=== PATIENT | female | born 1970 | race African-American/Black ===

== ENCOUNTER 2020-08-29 18:11 | Emergency (ER) | payer MEDICAID, OTHER ==
[~2020-08-29] VITALS: Ht 170.2 cm; Wt 68.0 kg
[2020-08-29 19:03] VITALS: BP 177/102
[2020-08-29] MEDS ORDERED: CLINDAMYCIN 900MG IV 50 ML IV ONE (20:00)
[2020-08-29] MEDS ORDERED: KETOROLAC TROMETH 30 MG/ML 1ML VIAL IV ONE (20:00)
[2020-08-29] MEDS ORDERED: SODIUM CHLORIDE 0.9% 1,000 ML IV ONE (20:00)
[2020-08-29 20:57] LABS: Basophils # (auto) 0 10 ^3/uL (0-0.2); Basophils % (auto) 0.3 % (0.0-2.0); Eosinophils # (auto) 0 10 ^3/uL (0-0.8); Eosinophils % (auto) 0.4 % (0.0-7.0); Hemoglobin 10.8 g/dL (12.2-16.2); Lymphocytes # (auto) 0.9 10 ^3/uL (0.4-5.4); Lymphocytes % (auto) 9.6 % (10.0-50.0); Mean Corpuscular Hemoglobin 29.5 pg (28.0-32.0); Mean Corpuscular Hgb Conc. 33.6 g/dL (32.0-36.0); Mean Corpuscular Volume 87.6 fL (80.0-100.0); Monocytes # (auto) 0.6 10 ^3/uL (0-1.3); Monocytes % (auto) 5.8 % (0.0-12.0); Neutrophils # (auto) 8.2 10 ^3/uL (1.6-8.6); Neutrophils % (auto) 83.9 % (37.0-80.0); Platelet Count (auto) 265 10^3/uL (140-450); Red Blood Cells 3.65 10^6/uL (4.0-5.20); Red Cell Distribution Width 17.1 % (11.8-14.3); White Blood Cell 9.8 10^3/uL (4.4-10.8)
[2020-08-29 21:14] LABS: Albumin 3.4 g/dL (3.4-5.0); Calcium 8.5 mg/dL (8.5-10.1)
[2020-08-29 21:19] LABS: BUN/Creatinine Ratio 13.3; Bilirubin, Total 0.5 mg/dL (0.2-1.0); Total Protein 7.5 g/dL (6.4-8.2)
[2020-08-29 21:22] LABS: Potassium 2.9 mmol/L (3.5-5.1)
[2020-08-29] MEDS ORDERED: POTASSIUM EFFERVESENT TAB 25 MEQ PO ONE (21:45)
== END 2020-08-30 00:18 | disposition home or self-care (01) ==
LOC: EDSEX 18:11 → ER 18:11
DX: L03.113 Cellulitis of right upper limb (principal)
CPT/HCPCS: 36415; 80053; 85025; 96365; 96375; 99284; J1885; J3490; J7030

== ENCOUNTER 2022-10-14 18:30 | Emergency (ER) | payer MEDICAID ==
[~2022-10-14] VITALS: Ht 170.2 cm; Wt 65.9 kg
[2022-10-14 19:30] VITALS: BP 138/79
[2022-10-14 20:24] LABS: Urine Bacteria NONE SEEN /hpf (None Seen); Urine Blood 2+ /uL (Negative); Urine WBC 13 /hpf (0 - 5)
== END 2022-10-14 22:08 | disposition left against medical advice (07) ==
LOC: ER 18:30
DX: R06.02 Shortness of breath (principal); Z53.21 Procedure and treatment not carried out due to patient leaving prior to being seen by health care provider
CPT/HCPCS: 81001; 93005

== ENCOUNTER 2024-01-28 08:51 | Emergency (ER) | payer MEDICAID ==
[~2024-01-28] VITALS: Ht 170.2 cm; Wt 68.2 kg
[2024-01-28] MEDS ORDERED: BACDST PO (10:39)
[2024-01-28] MEDS ORDERED: TRIA0.1O TOP (10:39)
[2024-01-28] MEDS ORDERED: CLIN1CAP70 PO (10:39)
[2024-01-28 10:50] VITALS: BP 155/102; PULSE 110; RESP 18; TEMP 98.6; O2SAT 97
== END 2024-01-28 10:57 | disposition home or self-care (01) ==
LOC: ER 08:57
DX: S81.802A Unspecified open wound, left lower leg, initial encounter (principal); L30.1 Dyshidrosis [pompholyx]; Z88.6 Allergy status to analgesic agent; X58.XXXA Exposure to other specified factors, initial encounter; Y93.89 Activity, other specified; Y92.89 Other specified places as the place of occurrence of the external cause; Y99.8 Other external cause status

== ENCOUNTER 2024-02-25 08:20 | Emergency (ER) | payer MEDICAID ==
[~2024-02-25] VITALS: Ht 170.2 cm; Wt 69.4 kg
[~2024-02-25 08:20] MED LIST: BACDST PO; CLIN1CAP70 PO; TRIA0.1O TOP
[2024-02-25 08:59] VITALS: BP 150/98; PULSE 91; RESP 16; TEMP 97.6; O2SAT 98
[2024-02-25] MEDS ORDERED: METH4PAK PO (09:01)
[2024-02-25] MEDS ORDERED: CEPH500C PO (09:01)
[2024-02-25] MEDS ORDERED: TRIA0.02 TOP (09:01)
== END 2024-02-25 09:08 | disposition home or self-care (01) ==
LOC: ER 08:20
DX: L30.1 Dyshidrosis [pompholyx] (principal); Z88.6 Allergy status to analgesic agent

== ENCOUNTER 2024-04-14 16:10 | Emergency (ER) | payer MEDICAID ==
[~2024-04-14] VITALS: Ht 170.2 cm; Wt 68.5 kg
[~2024-04-14 16:10] MED LIST changes: +CEPH500C PO; +METH4PAK PO; +TRIA0.02 TOP
[2024-04-14 17:46] LABS: Basophils # (auto) 0 10 ^3/uL (0-0.2); Eosinophils # (auto) 0.1 10 ^3/uL (0-0.8); Eosinophils % (auto) 2.2 % (0.0-7.0); Hematocrit 34.7 % (36.0-46.0); Lymphocytes # (auto) 1.4 10 ^3/uL (0.4-5.4); Lymphocytes % (auto) 33.5 % (10.0-50.0); Mean Corpuscular Hgb Conc. 31.7 g/dL (32.0-36.0); Mean Corpuscular Volume 88.3 fL (80.0-100.0); Monocytes # (auto) 0.3 10 ^3/uL (0-1.3); Monocytes % (auto) 7.9 % (0.0-12.0); Neutrophils # (auto) 2.4 10 ^3/uL (1.6-8.6); Neutrophils % (auto) 55.4 % (37.0-80.0); Nucleated Red Blood Cells % 0.2 %; Platelet Count (auto) 225 10^3/uL (140-450); Red Blood Cells 3.93 10^6/uL (4.0-5.20); Red Cell Distribution Width 18.3 % (11.8-14.3); White Blood Cell 4.3 10^3/uL (4.4-10.8)
[2024-04-14 18:04] LABS: Chloride 113 mmol/L (98-107); Potassium 3.7 mmol/L (3.5-5.1); Sodium 141 mmol/L (136-145)
[2024-04-14 18:05] LABS: Anion Gap 8 (5-15); Carbon Dioxide 20 mmol/L (20-31)
[2024-04-14 18:06] LABS: Calcium 9.3 mg/dL (8.7-10.4)
[2024-04-14 18:10] LABS: BUN/Creatinine Ratio 11.7 (10.0-20.0); Blood Urea Nitrogen 9 mg/dL (9-23); Glucose 79 mg/dL (74-106)
[2024-04-14 18:20] VITALS: BP 121/94; PULSE 93; RESP 17; TEMP 98.6; O2SAT 100
[2024-04-14] MEDS: KETOROLAC TROMETH 60MG/2ML VIAL IM ONE (18:22)
[2024-04-14 18:39] LABS: Vaginal Bacteria Moderate; Vaginal Clue Cells Many; Vaginal Epithelial Cells Few
[2024-04-14] MEDS ORDERED: CLIN2CRE7 VG (20:03)
[2024-04-14] MEDS ORDERED: MET500T PO (20:03)
[2024-04-14] MEDS ORDERED: IBUP-1455 PO (20:03)
[2024-04-14 21:26] LABS: Urine Bacteria None Seen /hpf (None Seen)
[2024-04-14 21:37] LABS: Urine Blood TRACE /uL (Negative); Urine Clarity Clear (Clear); Urine Color Yellow (Yellow); Urine Mucus FEW (None Seen); Urine Protein, UAD TRACE (Negative); Urine Specific Gravity 1.027 (1.001-1.035); Urine Urobilinogen 2 mg/dL (Negative); Urine WBC 1 /hpf (0 - 5)
== END 2024-04-14 21:26 | disposition home or self-care (01) ==
LOC: ER 16:10
DX: S80.02XA Contusion of left knee, initial encounter (principal); B96.89 Other specified bacterial agents as the cause of diseases classified elsewhere; N76.0 Acute vaginitis; F41.9 Anxiety disorder, unspecified; Z88.5 Allergy status to narcotic agent; Z79.899 Other long term (current) drug therapy; Y04.2XXA Assault by strike against or bumped into by another person, initial encounter; Y93.89 Activity, other specified; Y92.89 Other specified places as the place of occurrence of the external cause; Y99.8 Other external cause status
CPT/HCPCS: 36415; 73562; 80048; 81001; 85025; 87210; 96372; 99284; J1885

== ENCOUNTER 2024-06-29 07:14 | Inpatient (IN) | payer MEDICAID ==
[~2024-06-29] VITALS: Ht 170.2 cm; Wt 73.6 kg
[~2024-06-29 07:14] MED LIST changes: +CLIN2CRE7 VG; +IBUP-1455 PO; +MET500T PO
[2024-06-29] MEDS: ACETAMINOPHEN 325 MG TAB PO ONE (08:15)
[2024-06-29 08:18] LABS: Basophils # (auto) 0 10 ^3/uL (0-0.2); Basophils % (auto) 0.3 % (0.0-2.0); Eosinophils # (auto) 0 10 ^3/uL (0-0.8); Hematocrit 33.4 % (36.0-46.0); Lymphocytes # (auto) 0.4 10 ^3/uL (0.4-5.4); Lymphocytes % (auto) 3.6 % (10.0-50.0); Mean Corpuscular Hemoglobin 27.4 pg (28.0-32.0); Mean Corpuscular Hgb Conc. 32.9 g/dL (32.0-36.0); Mean Corpuscular Volume 83.4 fL (80.0-100.0); Monocytes # (auto) 0.4 10 ^3/uL (0-1.3); Monocytes % (auto) 3.9 % (0.0-12.0); Neutrophils # (auto) 9.5 10 ^3/uL (1.6-8.6); Neutrophils % (auto) 92.2 % (37.0-80.0); Nucleated Red Blood Cells % 0.1 %; Platelet Count (auto) 253 10^3/uL (140-450); Red Cell Distribution Width 17.6 % (11.8-14.3); White Blood Cell 10.3 10^3/uL (4.4-10.8)
[2024-06-29 08:38] LABS: Alanine Aminotransferase 17 U/L (7-40); Albumin 4.5 g/dL (3.2-4.8); Anion Gap 11 (5-15); Aspartate Aminotransferase 21 U/L (13-40); BUN/Creatinine Ratio 13.9 (10.0-20.0); Blood Urea Nitrogen 17 mg/dL (9-23); Calcium 9.8 mg/dL (8.7-10.4); Carbon Dioxide 24 mmol/L (20-31); Chloride 103 mmol/L (98-107); Magnesium 1.7 mg/dL (1.6-2.6); Sodium 138 mmol/L (136-145)
[2024-06-29 08:39] LABS: Bilirubin, Total 0.4 mg/dL (0.2-1.0); Total Protein 7.8 g/dL (5.7-8.2)
[2024-06-29 08:42] LABS: Alkaline Phosphatase 128 U/L (46-116); Glucose 208 mg/dL (74-106); Potassium 2.9 mmol/L (3.5-5.1)
[2024-06-29] MEDS: cefTRIAXone 1GM/50ML D5W 50 ML IV ONE (10:04)
--- NOTE | 2024-06-29 10:23 | DVH ---
EXAM: XY CHEST PORTABLE Indication: SoB Technique: Single frontal view of the chest was obtained Comparison: None FINDINGS: Lines and Tubes: None Lungs: No focal consolidation. Pleura: No effusion. No pneumothorax. Cardiomediastinal contours: Unremarkable Bones: No acute osseous abnormality. IMPRESSION: No acute cardiopulmonary disease.
[2024-06-29 10:30] LABS: INR 0.97 (0.9-1.15); Partial Thromboplastin Time 30.7 SEC (24.5-34.5); Prothrombin Time 10.3 sec (9.3-11.8)
--- NOTE | 2024-06-29 11:17 | ED.PDOC ---
Musculoskeletal HPI Comments 53 y.o female with PMH Of HTN, presents to the ED for a chief complaint of left lower extremity swelling associated with tenderness, erythema and swelling that presented 3-4 months ago. Patient reports symptoms have worsened and now associated with fevers and chills x 1-2 days. Patient does presents febrile at 103.8 F with HR of 131. Patient has been seen for this complaint multiple times, has been sent to fast track and discharge but is unable to specify diagnoses then. Chief Complaint: Lower Extremity Time Seen by MD: 11:02 Primary Care Provider: Daphne Garcia Notes: Nurses Notes, Medications, Allergies Allergies: Coded Allergies: Hydrocodone (Verified Allergy, Unknown, 10/14/22) Home Meds Active Scripts Ibuprofen Micronized (Ibuprofen) 800 Mg Tab, 800 MG PO Q8HP PRN, #20 TAB Prov:LM CARRASQUILLO PAC 04/14/24 Clindamycin Phosphate (Clindamycin Phosphate) 2 % Cre, 1 APPLIC VG QPM for 7 Days, #40 GRAMS Prov:LM CARRASQUILLO PAC 04/14/24 Metronidazole (Metronidazole) 500 Mg Tab, 500 MG PO BID for 7 Days, #14 TAB Prov:LM CARRASQUILLO [facility] 04/14/24 Cephalexin Monohydrate (Cephalexin) 500 Mg Cap, 1 CAP PO QID, #28 CAP Prov:CECELIA MISHRA 02/25/24 Methylprednisolone (Medrol Dosepak) 4 Mg [place], 4 MG PO UD, #21 TAB UAD Prov:CECELIA MISHRA 02/25/24 Triamcinolone Acetonide (Triamcinolone Acetonide) 0.025 % Cre, 1 APPLIC TOP BID, #30 GRAMS Prov:CECELIA MISHRA 02/25/24 Clindamycin Hcl (Clindamycin Hcl) 300 Mg Cap, 1 CAP PO TID, #30 CAP Prov:CECELIA MISHRA 01/28/24 Sulfamethoxazole W/Trimethopri (Bactrim Ds Tablet) 1 Tab Tb, 1 TAB PO BID for 10 Days, #20 TAB Prov:CECELIA MISHRA 01/28/24 Triamcinolone Acetonide (Triamcinolone Acetonide) 0.1 % Oin, 1 APPLIC TOP BID, #30 GRAMS Prov:CECELIA MISHRA 01/28/24 Information Source: Patient Mode of Arrival: Ambulatory Location: Left Extremity Location: Leg Timing: Months Severity: Moderate Able to Move Extremity: Yes Bear Weight: Fully Pain: Moderate Mechanism: None Circumstances: Preceding Wound Onset of Symptoms: Spontaneous Symptoms: Swelling, Pain, Erythema DVT Risk Factors: NONE Associated signs and symptoms: Swelling, Leg pain Past Medical History PAST MEDICAL HISTORY: Anxiety Surgical History: Denies all surgeries 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 Family History Family History: Reviewed,noncontributory to illness, No family hx of Cancer, No family hx of DM, No family hx of Heart davina, No family hx of HTN, No family hx ofKidney davina, No family hx of Liver davina, No family hx of Lung davina, No family hx of Stroke Social History Smoker: Non-Smoker Alcohol: Denies ETOH Use Drugs: Denies Drug Use Lives In: Home Constitutional: denies: chills, diaphoresis, fatigue, fever, malaise, sweats, weakness, others EENTM: denies: blurred vision, double vision, ear bleeding, ear discharge, ear drainage, ear pain, ear ringing, eye pain, eye redness, hearing loss, mouth pain, mouth swelling, nasal discharge, nose bleeding, nose congestion, nose pain, photophobia, tearing, throat pain, throat swelling, voice changes, others Respiratory: denies: cough, hemoptysis, orthopnea, SOB at rest, shortness of breath, SOB with excertion, stridor, wheezing, others Cardiovascular: denies: chest pain, dizzy spells, diaphoresis, Dyspnea on exertion, edema, irregular heart beat, left arm pain, lightheadedness, palpitations, PND, syncope, others Gastrointestinal: denies: abdomen distended, abdominal pain, blood streaked bowels, constipated, diarrhea, dysphagia, difficulty swallowing, hematemesis, melena, nausea, poor appetite, poor fluid intake, rectal bleeding, rectal pain, vomiting, others Genitourinary: denies: abnormal vagina bleeding, burning, dyspareunia, dysuria, flank pain, frequency, hematuria, incontinence, pain, , vagina discharge, urgency, others Neurological: denies: dizziness, fainting, headache, left sided numbness, left sided weakness, numbness, paresthesia, pre-existing deficit, right sided numbness, right sided weakness, seizure, speech problems, tingling, tremors, weakness, others Integumetry: reports: others (left lower leg tenderness, erythema and swelling ); denies: bruises, change in color, change in hair/nails, dryness, laceration, lesions, lumps, rash, wounds Allergic/Immunocompromised: denies: Difficulty Healing, Frequent Infections, Hives, Itching, others Hematologic/Lymphatic: denies: anemia, blood clots, easy bleeding, easy bruising, swollen glands, others Endocrine: denies: excessive hunger, excessive sweating, excessive thirst, excessive urination, flushing, intolerance to cold, intolerance to heat, unexplained weight gain, unexplained weight loss, others Psychiatric: denies: anxiety, bipolar disorder, depression, hopeless, panic disorder, schizophrenia, sleepless, suicidal, others All Other Systems: Reviewed and Negative Physical Exam General Appearance: No Apparent Distress, Normal HEENT: Normal ENT Inspection, Pharynx Normal, TMs Normal Neck: Full Range of Motion, Non-Tender, Normal, Normal Inspection Respiratory: Chest Non-Tender, Lungs Clear, No Accessory Muscle Use, No Respiratory Distress, Normal Breath Sounds Cardiovascular: No Edema, No JVD, No Murmur, No Gallop, Normal Peripheral Pulses, Regular Rate/Rhythm Breast Exam: Deferred Gastrointestinal: No Organomegaly, Non Tender, No Pulsatile Mass, Normal Bowel Sounds, Soft Genitalia: Deferred Pelvic: Deferred Rectal: Deferred Extremities: Normal capillary refill, Swelling (left lower leg ), Tender (left lower leg ), Other (erythema tracking on the medial aspect of the leg) Musculoskeletal : Apperance: Normal Neurologic: Alert, comp field case manager II-XII nml as Tested, No Motor Deficits, Normal Affect, Normal Mood, No Sensory Deficits Cerebellar Function: Normal Reflexes: Normal Skin: Dry, Normal Color, Warm, Other (left lower leg erythema ) Lymphatic: No Adenopathy Was a procedure done? Was a procedure done?: No Differential Diagnosis EXT Differential Diagnosis: Cellulitis, CHF, Deep Vein Thrombosis, Compartment Syndrome, Sprain, Gout, Contusion, Strain, Rheumatoid X-Ray, Labs, Meds, VS Vital Signs Date Time Temp Pulse Resp B/P (MAP) Pulse Ox O2 Delivery O2 Flow Rate FiO2 06/29/24 08:52 99.7 06/29/24 08:15 99.2 124 18 126/82 (97) 100 99.2 06/29/24 08:15 124 18 100 Room Air 06/29/24 08:15 103.8 06/29/24 07:46 103.8 141 20 156/122 (133) 95 Lab Test 06/29/24 09:00 06/29/24 08:00 Range/Units Prothrombin Time 10.3 9.3-11.8 sec Prothrombin Time INR 0.97 0.9-1.15 Activated Partial Thromboplast Time 30.7 24.5-34.5 SEC D-Dimer, Quantitative 1.13 H 0.0-0.49 mg/L FEU White Blood Count 10.3 4.4-10.8 10^3/uL Red Blood Count 4.00 4.0-5.20 10^6/uL Hemoglobin 11.0 L 12.2-16.2 g/dL Hematocrit 33.4 L 36.0-46.0 % Mean Corpuscular Volume 83.4 80.0-100.0 fL Mean Corpuscular Hemoglobin 27.4 L 28.0-32.0 pg Mean Corpuscular Hemoglobin Concent 32.9 32.0-36.0 g/dL Red Cell Distribution Width 17.6 H 11.8-14.3 % Platelet Count 253 140-450 10^3/uL Mean Platelet Volume 7.9 6.9-10.8 fL Neutrophils (%) (Auto) 92.2 H 37.0-80.0 % Lymphocytes (%) (Auto) 3.6 L 10.0-50.0 % Monocytes (%) (Auto) 3.9 0.0-12.0 % Eosinophils (%) (Auto) 0.0 0.0-7.0 % Basophils (%) (Auto) 0.3 0.0-2.0 % Neutrophils # (Auto) 9.5 H 1.6-8.6 10 ^3/uL Lymphocytes # (Auto) 0.4 0.4-5.4 10 ^3/uL Monocytes # (Auto) 0.4 0-1.3 10 ^3/uL Eosinophils # (Auto) 0 0-0.8 10 ^3/uL Basophils # (Auto) 0 0-0.2 10 ^3/uL Nucleated Red Blood Cells 0.1 % Sodium Level 138 136-145 mmol/L Potassium Level 2.9 L 3.5-5.1 mmol/L Chloride Level 103 98-107 mmol/L Carbon Dioxide Level 24 20-31 mmol/L Anion Gap 11 5-15 Blood Urea Nitrogen 17 9-23 mg/dL Creatinine 1.22 H 0.550-1.02 mg/dL Glomerular Filtration Rate Calc 53 >90 mL/min BUN/Creatinine Ratio 13.9 10.0-20.0 Serum Glucose 208 H 74-106 mg/dL Calcium Level 9.8 8.7-10.4 mg/dL Magnesium Level 1.7 1.6-2.6 mg/dL Total Bilirubin 0.4 0.2-1.0 mg/dL Aspartate Amino Transferase (AST) 21 13-40 U/L Alanine Aminotransferase (ALT) 17 7-40 U/L Alkaline Phosphatase 128 H 46-116 U/L Lactate Dehydrogenase 238 120-246 U/L B-Type Natriuretic Peptide 12.87 0-100 pg/mL Total Protein 7.8 5.7-8.2 g/dL Albumin 4.5 3.2-4.8 g/dL Current Medications Medications (Trade) Dose Ordered Sig/[place] Route Start Time Stop Time Status Last Admin Acetaminophen (Tylenol Tablet) 1,000 mg ONCE ONCE PO 06/29/24 07:45 06/29/24 07:46 DC 06/29/24 08:15 Ceftriaxone Sodium 50 ml @ 100 mls/hr ONCE ONCE IV 06/29/24 10:00 06/29/24 10:29 DC 06/29/24 10:04 X-Ray, Labs, Meds, VS Comment This 53-year-old female presents secondary to a several month history of ulceration left lower extremity. She states she has been seen multiple times at an urgent care. However, in June 05 have not improved. In fact, they have worsened. She was now complaining of pain tracking up the medial aspect of her leg to her groin. She was subjective fevers and chills. Exam is significant for an ulceration to let aspect of the leg with erythema to lower extremity with tracking to her groin. At presentation, she was febrile and tachycardic. However, she did not have leukocytosis. Secondary to her thrombophlebitis, fever, tachycardia and concern for sepsis secondary to thrombophlebitis, she will be admitted to the hospital. She was started on initially Rocephin follow up by vancomycin in the emergency room. Please note she denies a history of his skin popping, IV drug abuse, or MRSA Time of 1ST Reevaluation: 11:11 Reevaluation 1ST: Unchanged Patient Education/Counseling: Diagnosis, Treatment, Prognosis Family Education/Counseling: No Family Present Additional Information The following tests were ordered, and results were reviewed by me: LAB, CXR, PHA I reviewed and agreed with the following test results read by other providers: CXR I discussed treatment and results with medical personnel and patient Departure 1 Departure Time of Disposition: 11:38 Impression: Primary Impression: Deep vein phlebitis and thrombophlebitis of right lower extremity Additional Impressions: Ulcer Sepsis Disposition: ADMITTED INPATIENT Condition: Serious Critical Care Note Critical Care Time?: No Stability Stability form required: No I personally scribed for JACKY YANCEY MD ([email or web address]) on 06/29/24 at 11:17. Electronically submitted by Jeannette Mcconnell ([facility]). I personally scribed for JACKY YANCEY MD ([email or web address]) on 06/29/24 at 11:18. Electronically submitted by Jeannette Mcconnell ([facility]). JACKY YANCEY MD Jun 29, 2024 11:17
[2024-06-29] MEDS: POTASSIUM CHL 20 Meq TABLET PO ONE (11:57)
[2024-06-29 12:42] LABS: Lactic Acid w/Reflex 2.8 mmol/L (0.4-2.0)
[2024-06-29] MEDS: VANCOMYCIN 1GM/250ML KIT 250 ML IV ONE (14:18)
[2024-06-29] MEDS: IBUPROFEN 800 MG TAB PO ONE (15:35)
--- NOTE | 2024-06-29 18:28 | DVHHP2 ---
History of Present Illness Reason for Visit: Left lower extremity pain and open wound worsening for last few days History of Present Illness 53-year-old female with a known history of hypertension initially admitted to the hospital with left lower extremity pain and swelling worsening for last few days. Patient was found to have left lower extremity cellulitis currently Doppler venous ultrasound is pending to rule out any DVT. Patient denies any fevers chills complaining of left lower extremity pain seven to 8/10. Also there is open minute in the left lower extremity with a cellulitis. Patient denies any fevers chills. Cardiovascular: HTN Past Surgical History: Other (Some intestinal surgery.) Smoke: No ALCOHOL: none Drugs: None Review of Systems Review of Systems Twelve review of system are negative besides mentioned above. Allergies: Coded Allergies: Hydrocodone (Verified Allergy, Unknown, 10/14/22) Exam Vital Signs Vital Signs Date Time Temp Pulse Resp B/P (MAP) Pulse Ox O2 Delivery O2 Flow Rate FiO2 06/29/24 13:19 97.8 104 18 106/68 (81) 100 97.8 06/29/24 08:15 Room Air Exam HEENT pupils are reactive Neck is supple CV is S1-S2 regular rate and rhythm Respiratory are clear GI positive bowel sound Extremity no edema Left lower extremity has redness swelling and there is open wound of the left lower leg. 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 Labs/Xrays Labs Test 06/29/24 15:16 06/29/24 09:00 06/29/24 08:00 Range/Units Lactic Acid Level 3.4 *H 0.4-2.0 mmol/L Prothrombin Time 10.3 9.3-11.8 sec Prothrombin Time INR 0.97 0.9-1.15 Activated Partial Thromboplast Time 30.7 24.5-34.5 SEC D-Dimer, Quantitative 1.13 H 0.0-0.49 mg/L FEU White Blood Count 10.3 4.4-10.8 10^3/uL Red Blood Count 4.00 4.0-5.20 10^6/uL Hemoglobin 11.0 L 12.2-16.2 g/dL Hematocrit 33.4 L 36.0-46.0 % Mean Corpuscular Volume 83.4 80.0-100.0 fL Mean Corpuscular Hemoglobin 27.4 L 28.0-32.0 pg Mean Corpuscular Hemoglobin Concent 32.9 32.0-36.0 g/dL Red Cell Distribution Width 17.6 H 11.8-14.3 % Platelet Count 253 140-450 10^3/uL Mean Platelet Volume 7.9 6.9-10.8 fL Neutrophils (%) (Auto) 92.2 H 37.0-80.0 % Lymphocytes (%) (Auto) 3.6 L 10.0-50.0 % Monocytes (%) (Auto) 3.9 0.0-12.0 % Eosinophils (%) (Auto) 0.0 0.0-7.0 % Basophils (%) (Auto) 0.3 0.0-2.0 % Neutrophils # (Auto) 9.5 H 1.6-8.6 10 ^3/uL Lymphocytes # (Auto) 0.4 0.4-5.4 10 ^3/uL Monocytes # (Auto) 0.4 0-1.3 10 ^3/uL Eosinophils # (Auto) 0 0-0.8 10 ^3/uL Basophils # (Auto) 0 0-0.2 10 ^3/uL Nucleated Red Blood Cells 0.1 % Sodium Level 138 136-145 mmol/L Potassium Level 2.9 L 3.5-5.1 mmol/L Chloride Level 103 98-107 mmol/L Carbon Dioxide Level 24 20-31 mmol/L Anion Gap 11 5-15 Blood Urea Nitrogen 17 9-23 mg/dL Creatinine 1.22 H 0.550-1.02 mg/dL Glomerular Filtration Rate Calc 53 >90 mL/min BUN/Creatinine Ratio 13.9 10.0-20.0 Serum Glucose 208 H 74-106 mg/dL Calcium Level 9.8 8.7-10.4 mg/dL Magnesium Level 1.7 1.6-2.6 mg/dL Total Bilirubin 0.4 0.2-1.0 mg/dL Aspartate Amino Transferase (AST) 21 13-40 U/L Alanine Aminotransferase (ALT) 17 7-40 U/L Alkaline Phosphatase 128 H 46-116 U/L Lactate Dehydrogenase 238 120-246 U/L B-Type Natriuretic Peptide 12.87 0-100 pg/mL Total Protein 7.8 5.7-8.2 g/dL Albumin 4.5 3.2-4.8 g/dL Assessment/Plan Assessment/Plan 53-year-old female with a known history of hypertension initially presented to the hospital with left lower extremity pain and swelling and redness found to have 1. Sepsis secondary to left lower extremity cellulitis 2. Left lower extremity cellulitis rule out abscess 3. Left lower extremity swelling rule out DVT 4. Lactic acidosis 5. Acute kidney injury suspected secondary to vasomotor nephropathy 6. Hypokalemia 7. Hypertension -admitted to telemetry, broad-spectrum IV antibiotics after blood cultures has been Drawn-CT of the left lower extremity to rule out abscess -venous Doppler to rule out DVT of the left lower extremity -and Infectious Disease consultation -repeat lactic acid Plan discussed with: Patient My Orders Orders - MARY LE MD Procedure Category Date Status Time Left Lower Extremity CT 06/29/24 Logged W/O Con 18:19 Lt Lower Dvt US 06/29/24 Logged 18:19 Admit ADMIT 06/29/24 Transmitted 18:21 Code Status CODE 06/29/24 Transmitted 18:21 2 Gm Sodium Diet DIET 06/29/24 Transmitted Dinner 0.9% Ns 1000 Ml PHA 06/29/24 Transmitted 18:30 Hydrocodone-Acet PHA 06/29/24 Transmitted 5/325mg Tab ([place] 18:30 Ondansetron Hcl PHA 06/29/24 Transmitted (Zofran) 18:30 Complete Blood Count LAB 06/30/24 Verified 04:00 Comprehensive LAB 06/30/24 Verified Metabolic Panel 04:00 Condition: Stable [facility] 06/29/24 Transmitted 18:21 Enoxaparin Sodium [facility] 06/30/24 Transmitted (Lovenox) 10:00 Acetaminophen Tablet PHA 06/29/24 Transmitted (Tylenol Tablet) 18:30 Morphine Sulfate PHA 06/29/24 Transmitted Injection 18:30 Nitroglycerin PHA 06/29/24 Transmitted Sublingual (Ntrostat 18:30 Morphine Sulfate PHA 06/29/24 Transmitted Injection 18:30 Stat Ekg For Chest [facility] 06/29/24 Transmitted Pain 18:21 Notify Of Changes [facility] 06/29/24 Transmitted From Base 18:21 Business Department Chair For [facility] 06/29/24 Transmitted 24 Hours 18:21 Emergency Dysrhythmia [facility] 06/29/24 Transmitted Protocol 18:21 Rhythm Strips Once [facility] 06/29/24 Transmitted Every Shift 18:21 Oxygen By Nasal RT 06/29/24 Transmitted Cannula 18:21 Vancomycin Per PHA 06/29/24 Transmitted Pharmacy 18:30 Zosyn Extended PHA 06/29/24 Transmitted Infusion 22:00 * Infectious [place]- . CONS 06/29/24 Transmitted Mallad 18:21 Communication Order ORDERS 06/29/24 Transmitted 18:21 Date of Service: Jun 29, 2024 Billing Provider: MARY LE MD Common Visit Codes: NOT BILLABLE MARY LE MD Jun 29, 2024 18:28
[2024-06-29] MEDS ORDERED: MORPHINE SULFATE INJ 2 MG/ml SYRG IV PRN (18:30)
[2024-06-29] MEDS ORDERED: NITROGLYCERIN 0.4 MG SL TAB SL PRN (18:30)
[2024-06-29] MEDS ORDERED: ONDANSETRON HCL 4 MG/2 ML VIAL IV PRN (18:30)
[2024-06-29] MEDS ORDERED: HYDROcodone-ACET 5/325MG TAB PO PRN (18:30)
[2024-06-29] MEDS ORDERED: VANCOMYCIN PER PHARMACY 0 MG IV SCH (18:30)
--- NOTE | 2024-06-29 19:59 | DVH ---
CLINICAL HISTORY: Left lower extremity pain and swelling TECHNIQUE: Color and duplex doppler imaging of the left lower extremity veins was performed. Vessel c ompression if possible was also performed. WID: COMPARISON: None FINDINGS: Left external iliac veins: Normal flow and phasicity. Left common femoral vein: Normal compressibility and flow. Left femoral vein: Normal compressibility and flow. Left popliteal vein: Normal compressibility and flow. Proximal calf veins are normally compressible. Subcutaneous edema in the left calf. IMPRESSION: 1. NO SONOGRAPHIC EVIDENCE FOR DEEP VENOUS THROMBOSIS IN THE LEFT LOWER EXTREMITY VEINS. 2. Mild subcutaneous edema in the left calf.
--- NOTE | 2024-06-29 20:50 | DVH ---
INDICATION: Left lower extremity cellulitis with open wound rule out abs COMPARISON: None TECHNIQUE: CT of the right was performed without contrast. Volume transverse images were obtained a nd reconstructed in multiple planes using bone and soft tissue algorithms. CONTRAST: None Radiation Dose Information: CT Dose: CTDI volume is 7.75 mGy. Dose-length product is 382.87 mGy*cm FINDINGS: Minimally displaced fracture through the lateral tibial plateau. Appears to be in the anterior porti on of the lateral tibial plateau. The central portion of the tibia tibial spines are slightly depres sed approximately 2 mm. The joint spaces are normal. There is no fracture, dislocation, or focal osseous lesions. Cutaneous edema. Increased edema in the medial soft tissues of the left ankle. IMPRESSION: Minimally displaced fracture of the lateral tibial plateau.
[2024-06-29] MEDS ORDERED: LISI2.5T47 PO (21:24)
[2024-06-29 21:25] VITALS: PULSE 89; RESP 17; O2SAT 98
[2024-06-29 21:52] VITALS: BP 103/62; PULSE 89; RESP 17; TEMP 98.5; O2SAT 98
[2024-06-29] MEDS: PIPERACILLIN-TAZOB 3.375GM 100 ML IV SCH (22:49)
[2024-06-29] MEDS: SODIUM CHLORIDE 0.9% 1,000 ML IV SCH (22:55)
[2024-06-30] VITALS (7 sets, daily range): BP systolic 107–129; BP diastolic 54–79; PULSE 83–102; RESP 15–20; TEMP 98.2–98.9; O2SAT 96–100
[2024-06-30] MEDS: VANCOMYCIN 750MG VIAL 750 MG in D5W 5% 100 ML IV SCH (02:00)
[2024-06-30] MEDS: MORPHINE SULFATE INJ 2 MG/ml SYRG IV PRN (04:09)
[2024-06-30] MEDS: ACETAMINOPHEN 325 MG TAB PO PRN (06:41)
[2024-06-30] MEDS: ENOXAPARIN SOD 30 MG/0.3 ML SYRINGE SC SCH (08:41)
[2024-06-30 11:08] LABS: Basophils # (auto) 0 10 ^3/uL (0-0.2); Basophils % (auto) 0.2 % (0.0-2.0); Eosinophils # (auto) 0.1 10 ^3/uL (0-0.8); Eosinophils % (auto) 1.1 % (0.0-7.0); Hematocrit 37.2 % (36.0-46.0); Hemoglobin 11.9 g/dL (12.2-16.2); Mean Corpuscular Hemoglobin 27.2 pg (28.0-32.0); Mean Corpuscular Hgb Conc. 31.9 g/dL (32.0-36.0); Mean Corpuscular Volume 85.1 fL (80.0-100.0); Monocytes # (auto) 0.6 10 ^3/uL (0-1.3); Monocytes % (auto) 5.2 % (0.0-12.0); Neutrophils # (auto) 9.2 10 ^3/uL (1.6-8.6); Neutrophils % (auto) 84.5 % (37.0-80.0); Nucleated Red Blood Cells % 0.1 %; Platelet Count (auto) 253 10^3/uL (140-450); Red Blood Cells 4.37 10^6/uL (4.0-5.20); Red Cell Distribution Width 18.2 % (11.8-14.3); White Blood Cell 10.9 10^3/uL (4.4-10.8)
[2024-06-30 11:28] LABS: Alanine Aminotransferase 15 U/L (7-40); Albumin 4.4 g/dL (3.2-4.8); Anion Gap 9 (5-15); Aspartate Aminotransferase 19 U/L (13-40); BUN/Creatinine Ratio 12.8 (10.0-20.0); Bilirubin, Total 0.5 mg/dL (0.2-1.0); Blood Urea Nitrogen 15 mg/dL (9-23); Calcium 9.9 mg/dL (8.7-10.4); Carbon Dioxide 27 mmol/L (20-31); Chloride 103 mmol/L (98-107); Sodium 139 mmol/L (136-145); Total Protein 7.8 g/dL (5.7-8.2)
[2024-06-30 11:32] LABS: Alkaline Phosphatase 129 U/L (46-116); Glucose 124 mg/dL (74-106); Potassium 2.8 mmol/L (3.5-5.1)
--- NOTE | 2024-06-30 15:32 | DVHPN2 ---
Subjective OVERNIGHT EVENTS NOTED. PATIENT IS COMPLAINING OF LEFT LOWER EXTREMITY PAIN CT OF THE LEFT LOWER EXTREMITY SHOWED EVIDENCE OF LATERAL TIBIAL PLATEAU MINIMALLY DISPLACED FRACTURE. Reviewed: Care Plan Changes from previous H/P or p: No Changes, Changes (CT OF THE LEFT LOWER EXTREMITY SHOWED EVIDENCE OF LATERAL TIBIAL PLATEAU FRACTURE MINIMALLY DISPLACED) Objective Vitals Vital Signs Date Time Temp Pulse Resp B/P (MAP) Pulse Ox O2 Delivery O2 Flow Rate FiO2 06/30/24 13:30 18 20 122/77 06/30/24 13:00 98.9 98 98.9 06/30/24 08:00 Room Air* 0 21 Intake/Output Intake and Output 06/30/24 07:00 Intake Total 1300 ml Balance 1300 ml Intake Oral 250 ml IV Total 1050 ml # Voids 1 Exam HEENT PUPILS ARE REACTIVE NECK IS SUPPLE CV IS S1-S2 REGULAR RATE AND RHYTHM RESPIRATORY DIMINISHED BREATH SOUNDS BASES GI POSITIVE BOWEL SOUND EXTREMITIES LEFT LOWER EXTREMITY REDNESS AND 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 Medications Current Medications Medications Dose Ordered Sig/[place] Route Start Time Stop Time Status Last Admin Dose Admin Sodium Chloride 1,000 ml @ 120 mls/hr Q8H20M IV 06/29/24 18:30 06/30/24 12:30 120 MLS/HR Acetaminophen/ Hydrocodone Bitart 1 tab Q4HP PRN PO 06/29/24 18:30 Hold Ondansetron HCl 4 mg Q4HP PRN IV 06/29/24 18:30 Enoxaparin Sodium 30 mg DAILY SC 06/30/24 10:00 06/30/24 08:41 30 MG Acetaminophen 650 mg Q6HP PRN PO 06/29/24 18:30 06/30/24 06:41 650 MG Morphine Sulfate 2 mg Q4HPRN PRN IV 06/29/24 18:30 06/30/24 12:59 2 MG Nitroglycerin 0.4 mg Q5MINP PRN SL 06/29/24 18:30 Morphine Sulfate 2 mg Q30M PRN IV 06/29/24 18:30 Vancomycin HCl 0 ml @ 0 mls/hr UD IV 06/29/24 18:30 Piperacillin Sod/ Tazobactam Sod 100 ml @ 25 mls/hr Q8HR IV 06/29/24 22:00 06/30/24 14:18 25 MLS/HR Vancomycin HCl 750 mg/Dextrose 100 ml @ 100 mls/hr Q12H IV 06/30/24 02:00 06/30/24 12:52 100 MLS/HR Ibuprofen 800 mg Q8HP PRN PO 06/30/24 14:15 Laboratory Results Laboratory Tests 06/30/24 10:55 Chemistry Test 06/30/24 10:55 Albumin 4.4 g/dL (3.2-4.8) Calcium Level 9.9 mg/dL (8.7-10.4) Total Protein 7.8 g/dL (5.7-8.2) LFT Test 06/30/24 10:55 Alanine Aminotransferase (ALT) 15 U/L (7-40) Alkaline Phosphatase 129 U/L (46-116) H Aspartate Amino Transferase (AST) 19 U/L (13-40) Total Bilirubin 0.5 mg/dL (0.2-1.0) Microbiology Microbiology Date/Time Source Procedure Growth Status 06/29/24 08:00 Blood Blood Culture - Preliminary NO GROWTH AFTER 24 HOURS OF INCUBATION. Resulted Assessment/Plan Assessment/Plan 53-year-old female with a known history of hypertension initially presented to the hospital with left lower extremity pain and swelling and redness found to have 1. Sepsis secondary to left lower extremity cellulitis 2. Left lower extremity cellulitis rule out abscess 3. LEFT LOWER EXTREMITY TIBIAL PLATEAU FRACTURE MINIMALLY DISPLACED 4. Lactic acidosis, IMPROVING 5. Acute kidney injury suspected secondary to vasomotor nephropathy 6. Hypokalemia 7. Hypertension -CONTINUE BROAD-SPECTRUM IV ANTIBIOTICS FOLLOW UP CULTURES, OBTAIN ORTHOPEDICS CONSULTATION -DVT RULED OUT -and Infectious Disease consultation -repeat lactic acid Plan discussed with: Patient My Orders Orders - MARY LE MD Procedure Category Date Status Time Left Lower Extremity CT 06/29/24 Resulted W/O Con 18:19 Lt Lower Dvt US 06/29/24 Resulted 18:19 Admit ADMIT 06/29/24 Transmitted 18:21 Code Status CODE 06/29/24 Transmitted 18:21 2 Gm Sodium Diet DIET 06/29/24 Transmitted Dinner Sodium Chloride 0.9% PHA 06/29/24 In Process 18:30 Hydrocodone-Acet PHA 06/29/24 In Process 5/325mg Tab ([place] 18:30 Ondansetron Hcl PHA 06/29/24 In Process (Zofran) 18:30 Condition: Stable [facility] 06/29/24 In Process 18:21 Enoxaparin Sodium PHA 06/30/24 In Process (Lovenox) 10:00 Acetaminophen Tablet PHA 06/29/24 In Process (Tylenol Tablet) 18:30 Morphine Sulfate PHA 06/29/24 In Process Injection 18:30 Nitroglycerin PHA 06/29/24 In Process Sublingual (Ntrostat 18:30 Morphine Sulfate PHA 06/29/24 In Process Injection 18:30 Stat Ekg For Chest [facility] 06/29/24 In Process Pain 18:21 Notify Md Of Changes [facility] 06/29/24 In Process From Base 18:21 Certified Mortician For [facility] 06/29/24 In Process 24 Hours 18:21 Emergency Dysrhythmia [facility] 06/29/24 In Process Protocol 18:21 Rhythm Strips Once [facility] 06/29/24 In Process Every Shift 18:21 Oxygen By Nasal RT 06/29/24 Transmitted Cannula 18:21 Vancomycin Per PHA 06/29/24 In Process Pharmacy 18:30 Piperacillin-Tazob PHA 06/29/24 In Process 3.375gm (Zosyn 3.375g 22:00 * Infectious [place]- CONS 06/29/24 Transmitted Mallad 18:21 Communication Order ORDERS 06/29/24 Transmitted 18:21 Vancomycin Per JOSELIN 06/29/24 Transmitted Pharmacy [facility] 22:00 Vancomycin,Trough LAB 07/01/24 Verified 01:00 Vancomycin 750mg Vial PHA 06/30/24 In Process (Vancomycin Hcl) 02:00 Education - Smoking [facility] 06/29/24 In Process Cessation 22:32 * Smoking Cessation CONS 06/29/24 Transmitted Consult 22:32 *Consult Dr. Palafox CONS 06/30/24 Transmitted [place] 14:10 Ibuprofen Tablet PHA 06/30/24 In Process (Motrin Tablet) 14:15 Date of Service: Jun 30, 2024 Billing Provider: MARY LE MD Common Visit Codes: NOT BILLABLE MARY LE MD Jun 30, 2024 15:32
[2024-06-30] MEDS: IBUPROFEN 800 MG TAB PO PRN (16:53)
[2024-07-01] VITALS (8 sets, daily range): BP systolic 105–132; BP diastolic 54–80; PULSE 71–100; RESP 16–20; TEMP 98.2–100.4; O2SAT 97–100
[2024-07-01 02:15] LABS: Sodium 143 mmol/L (136-145)
[2024-07-01 02:16] LABS: Anion Gap 7 (5-15); Carbon Dioxide 27 mmol/L (20-31); Chloride 109 mmol/L (98-107); Potassium 2.8 mmol/L (3.5-5.1)
[2024-07-01 02:21] LABS: Blood Urea Nitrogen 19 mg/dL (9-23)
[2024-07-01 02:22] LABS: Calcium 8.6 mg/dL (8.7-10.4); Glucose 140 mg/dL (74-106)
[2024-07-01] MEDS: VANCOMYCIN 750MG VIAL 750 MG in D5W 5% 100 ML IV SCH (13:23)
[2024-07-01] MEDS: POTASSIUM CHL 20MEQ/100ML 100 ML IV SCH (16:00)
[2024-07-01] MEDS: POTASSIUM EFFERVESENT TAB 25 MEQ PO ONE (16:07)
--- NOTE | 2024-07-01 16:36 | DVHPN2 ---
Subjective OVERNIGHT EVENTS NOTED. PATIENT IS COMPLAINING OF LEFT LOWER EXTREMITY PAIN CT OF THE LEFT LOWER EXTREMITY SHOWED EVIDENCE OF LATERAL TIBIAL PLATEAU MINIMALLY DISPLACED FRACTURE. Reviewed: Care Plan Changes from previous H/P or p: No Changes Objective Vitals Vital Signs Date Time Temp Pulse Resp B/P (MAP) Pulse Ox O2 Delivery O2 Flow Rate FiO2 07/01/24 14:17 98.8 07/01/24 13:00 100 16 118/75 (89) 97 06/30/24 20:00 Room Air* 0 21 Intake/Output Intake and Output 07/01/24 07:00 Intake Total 1450 ml Balance 1450 ml Intake Oral 1150 ml IV Total 300 ml # Voids 4 Exam HEENT PUPILS ARE REACTIVE NECK IS SUPPLE CV IS S1-S2 REGULAR RATE AND RHYTHM RESPIRATORY DIMINISHED BREATH SOUNDS BASES GI POSITIVE BOWEL SOUND EXTREMITIES LEFT LOWER EXTREMITY REDNESS AND OPEN WOUND MANAGER RADIATION NO MOTOR DEFICIT Medications Current Medications Medications Dose Ordered Sig/Gilmar Route Start Time Stop Time Status Last Admin Dose Admin Sodium Chloride 1,000 ml @ 120 mls/hr Q8H20M IV 06/29/24 18:30 07/01/24 13:24 120 MLS/HR Acetaminophen/ Hydrocodone Bitart 1 tab Q4HP PRN PO 06/29/24 18:30 Hold Ondansetron HCl 4 mg Q4HP PRN IV 06/29/24 18:30 Enoxaparin Sodium 30 mg DAILY SC 06/30/24 10:00 07/01/24 09:43 30 MG Acetaminophen 650 mg Q6HP PRN PO 06/29/24 18:30 07/01/24 13:17 650 MG Morphine Sulfate 2 mg Q4HPRN PRN IV 06/29/24 18:30 07/01/24 05:48 2 MG Nitroglycerin 0.4 mg Q5MINP PRN SL 06/29/24 18:30 Morphine Sulfate 2 mg Q30M PRN IV 06/29/24 18:30 Vancomycin HCl 0 ml @ 0 mls/hr UD IV 06/29/24 18:30 Piperacillin Sod/ Tazobactam Sod 100 ml @ 25 mls/hr Q8HR IV 06/29/24 22:00 07/01/24 15:02 25 MLS/HR Ibuprofen 800 mg Q8HP PRN PO 06/30/24 14:15 06/30/24 16:53 800 MG Vancomycin HCl 750 mg/Dextrose 100 ml @ 100 mls/hr Q10H IV 07/01/24 12:00 07/01/24 13:23 100 MLS/HR Potassium Chloride 100 ml @ 50 mls/hr Q2H IV 07/01/24 14:00 07/01/24 17:59 Laboratory Results Laboratory Tests 06/30/24 10:55 07/01/24 01:31 Chemistry Test 07/01/24 01:31 Calcium Level 8.6 mg/dL (8.7-10.4) L Microbiology Microbiology Date/Time Source Procedure Growth Status 06/29/24 08:00 Blood Blood Culture - Preliminary NO GROWTH AFTER 48 HOURS OF INCUBATION. Resulted Assessment/Plan Assessment/Plan 53-year-old female with a known history of hypertension initially presented to the hospital with left lower extremity pain and swelling and redness found to have 1. Sepsis secondary to left lower extremity cellulitis 2. Left lower extremity cellulitis rule out abscess 3. LEFT LOWER EXTREMITY TIBIAL PLATEAU FRACTURE MINIMALLY DISPLACED 4. Lactic acidosis, IMPROVING 5. Acute kidney injury suspected secondary to vasomotor nephropathy 6. Hypokalemia 7. Hypertension -CONTINUE BROAD-SPECTRUM IV ANTIBIOTICS FOLLOW UP CULTURES, OBTAIN ORTHOPEDICS CONSULTATION -DVT RULED OUT -and Infectious Disease consultation -plan of care discussed with the patient the patient bedside RN. Plan discussed with: Patient My Orders Orders - MARY LE MD Procedure Category Date Status Time Cover Wound With Foam JOSELIN 06/30/24 In Process Dressing 16:40 * Dietary Consult CONS 06/30/24 Transmitted 18:05 * Wound Consult CONS 07/01/24 Transmitted Vancomycin 750mg Vial PHA 07/01/24 In Process (Vancomycin Hcl) 12:00 Vancomycin,Trough LAB 07/02/24 Verified 04:00 Creatinine LAB 07/02/24 Verified 04:00 Vancomycin Per JOSELIN 07/02/24 In Process Pharmacy Protoc 08:00 Potassium Chl PHA 07/01/24 In Process 20meq/100ml 14:00 Date of Service: Jul 01, 2024 Billing Provider: MARY LE MD Common Visit Codes: NOT BILLABLE MARY LE MD Jul 01, 2024 16:36
[2024-07-02] VITALS (8 sets, daily range): BP systolic 100–122; BP diastolic 58–80; PULSE 66–109; RESP 16–20; TEMP 98.4–99.3; O2SAT 95–100
[2024-07-02] MEDS: POTASSIUM CHL 20MEQ/100ML 100 ML IV SCH (02:20)
--- NOTE | 2024-07-02 06:51 | DVHINCON2 ---
Date of service: Jul 02, 2024 Reason for Consultation Left leg swelling and pain History of Present Illness 53 yo F who is a poor historian with 2 week history of swelling in left leg with open wounds; patient states shes popped wounds; She states she may have fallen around the same time as well Family History: Patient reports no known family medical history. Allergies: Coded Allergies: Hydrocodone (Verified Allergy, Unknown, 10/14/22) Home Meds Reported Medications Lisinopril (Lisinopril) 2.5 Mg Tab, 1 TAB PO DAILY, #30 TAB 5 Refills 06/29/24 Current Medications Current Medications Medications (Trade) Dose Ordered Sig/Gilmar Route PRN Reason Start Time Stop Time Status Last Admin Vancomycin HCl 750 mg/Dextrose 100 ml @ 100 mls/hr Q10H IV 07/01/24 12:00 07/01/24 21:13 Potassium Chloride 100 ml @ 50 mls/hr Q2H IV 07/01/24 14:00 07/01/24 17:59 DC Potassium Chloride 100 ml @ 50 mls/hr Q2H IV 07/02/24 02:00 07/02/24 05:59 DC 07/02/24 04:55 Review of Systems as per HPI Vital Signs Vital Signs Date Time Temp Pulse Resp B/P (MAP) Pulse Ox O2 Delivery O2 Flow Rate FiO2 07/02/24 05:00 98.4 96 16 100/58 (72) 95 98.4 07/01/24 20:00 Room Air* 0 21 Labs/Diagnostic Data Labs Test 07/01/24 01:31 06/30/24 10:55 06/29/24 09:00 06/29/24 08:00 Range/Units Sodium Level 143 136-145 mmol/L Potassium Level 2.8 L 3.5-5.1 mmol/L Chloride Level 109 H 98-107 mmol/L Carbon Dioxide Level 27 20-31 mmol/L Anion Gap 7 5-15 Blood Urea Nitrogen 19 9-23 mg/dL Creatinine 1.00 0.550-1.02 mg/dL Glomerular Filtration Rate Calc 67 >90 mL/min BUN/Creatinine Ratio 19.0 10.0-20.0 Serum Glucose 140 H 74-106 mg/dL Calcium Level 8.6 L 8.7-10.4 mg/dL Vancomycin Level Trough 7.9 5-10 ug/mL White Blood Count 10.9 H 4.4-10.8 10^3/uL Red Blood Count 4.37 4.0-5.20 10^6/uL Hemoglobin 11.9 L 12.2-16.2 g/dL Hematocrit 37.2 # 36.0-46.0 % Mean Corpuscular Volume 85.1 80.0-100.0 fL Mean Corpuscular Hemoglobin 27.2 L 28.0-32.0 pg Mean Corpuscular Hemoglobin Concent 31.9 L 32.0-36.0 g/dL Red Cell Distribution Width 18.2 H 11.8-14.3 % Platelet Count 253 140-450 10^3/uL Mean Platelet Volume 7.7 6.9-10.8 fL Neutrophils (%) (Auto) 84.5 H 37.0-80.0 % Lymphocytes (%) (Auto) 9.0 L 10.0-50.0 % Monocytes (%) (Auto) 5.2 0.0-12.0 % Eosinophils (%) (Auto) 1.1 0.0-7.0 % Basophils (%) (Auto) 0.2 0.0-2.0 % Neutrophils # (Auto) 9.2 H 1.6-8.6 10 ^3/uL Lymphocytes # (Auto) 1.0 0.4-5.4 10 ^3/uL Monocytes # (Auto) 0.6 0-1.3 10 ^3/uL Eosinophils # (Auto) 0.1 0-0.8 10 ^3/uL Basophils # (Auto) 0 0-0.2 10 ^3/uL Nucleated Red Blood Cells 0.1 % Lactic Acid Level 1.6 0.4-2.0 mmol/L Total Bilirubin 0.5 0.2-1.0 mg/dL Aspartate Amino Transferase (AST) 19 13-40 U/L Alanine Aminotransferase (ALT) 15 7-40 U/L Alkaline Phosphatase 129 H 46-116 U/L Total Protein 7.8 5.7-8.2 g/dL Albumin 4.4 3.2-4.8 g/dL Prothrombin Time 10.3 9.3-11.8 sec Prothrombin Time INR 0.97 0.9-1.15 Activated Partial Thromboplast Time 30.7 24.5-34.5 SEC D-Dimer, Quantitative 1.13 H 0.0-0.49 mg/L FEU Magnesium Level 1.7 1.6-2.6 mg/dL Lactate Dehydrogenase 238 120-246 U/L B-Type Natriuretic Peptide 12.87 0-100 pg/mL Microbiology Date/Time Source Procedure Growth Status 06/29/24 08:00 Blood Blood Culture - Preliminary NO GROWTH AFTER 48 HOURS OF INCUBATION. Resulted Plan/Recommendation 53 yo F with min displaced left tibia plateau fracture/ cellulitis 1. WBAT in knee immobilizer with crutches 2. local wound care 3. on abx 4. fu in ortho clinic in 2 weeks 5. no plans for any surgery Plan discussed with: Patient LONNIE DUDLEY MD Jul 02, 2024 06:51
[2024-07-02 14:43] LABS: Sodium 142 mmol/L (136-145)
[2024-07-02 14:44] LABS: Anion Gap 9 (5-15); Calcium 8.9 mg/dL (8.7-10.4); Carbon Dioxide 26 mmol/L (20-31)
[2024-07-02 14:46] LABS: Chloride 107 mmol/L (98-107); Potassium 3.2 mmol/L (3.5-5.1)
[2024-07-02 14:49] LABS: Glucose 161 mg/dL (74-106)
[2024-07-02 15:02] LABS: Blood Urea Nitrogen 9 mg/dL (9-23)
[2024-07-02] MEDS ORDERED: DOXY100C79 PO (16:21)
[2024-07-02] MEDS ORDERED: CEPH500C PO (16:21)
[2024-07-02] MEDS ORDERED: HYDR-4902 PO (16:21)
[2024-07-02] MEDS ORDERED: NALO4SPR2 (16:21)
[2024-07-02] MEDS ORDERED: KEP500T PO (16:21)
--- NOTE | 2024-07-02 16:27 | DVHDS2 ---
Discharge Summary Date of Admission Jun 29, 2024 at 18:21 Date of Discharge: Jul 02, 2024 Labs/Diagnostic Data: Laboratory Results Test 07/02/24 14:06 06/30/24 10:55 06/29/24 09:00 06/29/24 08:00 Sodium Level 142 mmol/L (136-145) Potassium Level 3.2 mmol/L (3.5-5.1) Chloride Level 107 mmol/L (98-107) Carbon Dioxide Level 26 mmol/L (20-31) Anion Gap 9 (5-15) Blood Urea Nitrogen 9 mg/dL (9-23) Creatinine 0.82 mg/dL (0.550-1.02) Glomerular Filtration Rate Calc 85 mL/min (>90) BUN/Creatinine Ratio 11.0 (10.0-20.0) Serum Glucose 161 mg/dL (74-106) Calcium Level 8.9 mg/dL (8.7-10.4) Magnesium Level 1.7 mg/dL (1.6-2.6) Vancomycin Level Trough < 3.0 ug/mL (5-10) White Blood Count 10.9 10^3/uL (4.4-10.8) Red Blood Count 4.37 10^6/uL (4.0-5.20) Hemoglobin 11.9 g/dL (12.2-16.2) Hematocrit 37.2 % (36.0-46.0) Mean Corpuscular Volume 85.1 fL (80.0-100.0) Mean Corpuscular Hemoglobin 27.2 pg (28.0-32.0) Mean Corpuscular Hemoglobin Concent 31.9 g/dL (32.0-36.0) Red Cell Distribution Width 18.2 % (11.8-14.3) Platelet Count 253 10^3/uL (140-450) Mean Platelet Volume 7.7 fL (6.9-10.8) Neutrophils (%) (Auto) 84.5 % (37.0-80.0) Lymphocytes (%) (Auto) 9.0 % (10.0-50.0) Monocytes (%) (Auto) 5.2 % (0.0-12.0) Eosinophils (%) (Auto) 1.1 % (0.0-7.0) Basophils (%) (Auto) 0.2 % (0.0-2.0) Neutrophils # (Auto) 9.2 10 ^3/uL (1.6-8.6) Lymphocytes # (Auto) 1.0 10 ^3/uL (0.4-5.4) Monocytes # (Auto) 0.6 10 ^3/uL (0-1.3) Eosinophils # (Auto) 0.1 10 ^3/uL (0-0.8) Basophils # (Auto) 0 10 ^3/uL (0-0.2) Nucleated Red Blood Cells 0.1 % Lactic Acid Level 1.6 mmol/L (0.4-2.0) Total Bilirubin 0.5 mg/dL (0.2-1.0) Aspartate Amino Transferase (AST) 19 U/L (13-40) Alanine Aminotransferase (ALT) 15 U/L (7-40) Alkaline Phosphatase 129 U/L (46-116) Total Protein 7.8 g/dL (5.7-8.2) Albumin 4.4 g/dL (3.2-4.8) Prothrombin Time 10.3 sec (9.3-11.8) Prothrombin Time INR 0.97 (0.9-1.15) Activated Partial Thromboplast Time 30.7 SEC (24.5-34.5) D-Dimer, Quantitative 1.13 mg/L FEU (0.0-0.49) Lactate Dehydrogenase 238 U/L (120-246) B-Type Natriuretic Peptide 12.87 pg/mL (0-100) Other Laboratory Tests 07/02/24 14:06 06/30/24 10:55 Brief Hx & Hospital Course: 53-year-old female with a known history of hypertension initially presented to the hospital with left lower extremity pain and swelling and redness found to have sepsis secondary to left lower extremity cellulitis. Patient was treated with the IV antibiotics. Patient had a fall two weeks ago eventually left lower extremity CT was done which shows tibial plateau fracture. Patient also had acute kidney injury which was resolved. Patient has stated that when she had fall two weeks ago she had a seizure-like activities. Empirical seizure medication will be given as well as antibiotics and knee immobilizer with the cultures. Patient is requesting to go home as her daughter got into accident in [facility] and going through surgery. Patient does not want to stay anymore. We will send the patient on pain pills p.o. antibiotics and follow up with Orthopedics and PCP and neurology for seizures. Condition at Discharge: Stable Final Diagnosis/Problems List 1. Sepsis secondary to left lower extremity cellulitis 2. Left lower extremity cellulitis rule out abscess 3. LEFT LOWER EXTREMITY TIBIAL PLATEAU FRACTURE MINIMALLY DISPLACED 4. Lactic acidosis, IMPROVING 5. Acute kidney injury suspected secondary to vasomotor nephropathy 6. Seizure disorder. 7. Hypertension Discharge Disposition: Home SNF Discharge Will this Physician continue t: No Discharge Instruct/Medications Diet: Cardiac 2g Na,low cholest Activity: See Comment Activity comment: No driving, no playing on heavy machinery, no signing legal documents while on narcotics. Follow Up/Referral: Follow up with the PCP in 1-2 weeks Follow up with Dr. Javy Nye in 1-2 weeks Follow up with Dr. Lida Nye in 1-2 weeks Medications: Keppra, Keflex, doxycycline, [place], Narcan Discharge Statement: "Patient was advised to return to the ER or call 911 if any headaches, dizziness, shortness of breath, chest pain, abdominal pain, bleeding, fevers, or worsening of medical condition. Patient was counseled about treatment plan, medications, possible side effects, patientverbalized understanding. All questions were answered to the best of my ability. This discharge took greater then 30 minutes in planning, reviewing documentation, counseling the patient, and discussing with other team members." ASSESSMENT ASSESSMENT Assessment 53-year-old female with a known history of hypertension initially presented to the hospital with left lower extremity pain and swelling and redness found to have 1. Sepsis secondary to left lower extremity cellulitis 2. Left lower extremity cellulitis rule out abscess 3. LEFT LOWER EXTREMITY TIBIAL PLATEAU FRACTURE MINIMALLY DISPLACED 4. Lactic acidosis, IMPROVING 5. Acute kidney injury suspected secondary to vasomotor nephropathy 6. Seizure disorder. 7. Hypertension Date of Service: Jul 02, 2024 Billing Provider: MARY LE MD Common Visit Codes: NOT BILLABLE MARY LE MD Jul 02, 2024 16:27
[2024-07-02] MEDS ORDERED: VANCOMYCIN 750MG VIAL 750 MG in D5W 5% 100 ML IV SCH (20:00)
--- NOTE | 2024-07-02 20:39 | DVHINCON2 ---
History of Present Illness 53-year-old female with a known history of hypertension who presents to the [facility] with left lower extremity pain and swelling worsening pain scale on seven to 8/10. last few days. Patient was found to have left lower extremity cellulitis currently Doppler venous ultrasound is pending to rule out any DVT. Also there is open minute in the left lower extremity with a cellulitis. Past Medical History Cardiovascular: HTN Past Surgical History Past Surgical History: Other (Some intestinal surgery.) Family History: Patient reports no known family medical history. Family History None Social History Smoke: No ALCOHOL: none Drugs: None Allergies: Coded Allergies: Hydrocodone (Verified Allergy, Unknown, 10/14/22) Home Meds Active Scripts Naloxone HCl (Narcan) 4 Mg/0.1 Ml Spr, 4 MG NA SWIMMING INSTRUCTOR, #2 SPRAY Prov:MARY LE MD 07/02/24 Hydrocodone-Acetaminophen (Hydrocodone Bitartrate/AC 5-325 mg) 1 Tab Tab, 1 TAB PO Q8HP PRN, #14 TAB Prov:MARY LE MD 07/02/24 Levetiracetam (KEPPRA TABLET) 500 Mg Tb, 500 MG PO BID, #60 TAB Prov:MARY LE MD 07/02/24 Doxycycline (Monohydrate) (Doxycycline) 100 Mg Cap, 100 MG PO BID, #20 CAP Prov:MARY LE MD 07/02/24 Cephalexin Monohydrate (Cephalexin) 500 Mg Cap, 500 MG PO QID for 10 Days, #40 CAP Prov:MARY LE MD 07/02/24 Reported Medications Lisinopril (Lisinopril) 2.5 Mg Tab, 1 TAB PO DAILY, #30 TAB 5 Refills 06/29/24 Current Medications Current Medications Medications (Trade) Dose Ordered Sig/Gilmar Route PRN Reason Start Time Stop Time Status Last Admin Potassium Chloride 100 ml @ 50 mls/hr Q2H IV 07/02/24 02:00 07/02/24 05:59 DC 07/02/24 04:55 Vancomycin HCl 750 mg/Dextrose 100 ml @ 100 mls/hr Q10H IV 07/02/24 20:00 Review of Systems General: No Fever, chills, night sweats or weight loss HEENT: No Sinus pain, headache, vision changes or sore throat Respiratory: No Cough, dyspnea, sputum production Cardiovascular: No Chest pain, palpitations or leg edema Gastrointestinal: No Nausea, vomiting, diarrhea, abdominal pain Genitourinary: No Dysuria, urinary frequency, hematuria, pelvic pain Skin: No Rashes, ulcers, abscesses, redness or swelling Musculoskeletal: left lower extremity pain and swelling Neurologic: No Altered mental status, headaches or focal neurological deficits. Psychiatric: No Anxiety, depression or confusion Vital Signs Vital Signs Date Time Temp Pulse Resp B/P (MAP) Pulse Ox O2 Delivery O2 Flow Rate FiO2 07/02/24 18:42 85 18 115/65 07/02/24 17:57 99.3 95 07/02/24 08:00 Room Air* 0 21 Physical Exam General: Patient appears comfortable, well-appearing and alert. Head, Eyes, Ears, Nose, Throat (HEENT): Normocephalic, atraumatic Neck: No cervical lymphadenopathy or masses. Lungs: Breath sounds clear bilaterally, no wheezes, rales, or rhonchi. Cardiovascular: Regular rate and rhythm, no murmurs, rubs, or gallops. Pulses equal radial and peripheral Abdomen: Soft, non-tender, non-distended. Bowel sounds present in all quadrants. Skin: No rash, petechiae, or ecchymosis. Extremities: left lower extremity pain and swelling Neurologic: Patient is alert and oriented to person, place, and time. Labs/Diagnostic Data Labs Test 07/02/24 14:06 06/30/24 10:55 06/29/24 09:00 06/29/24 08:00 Range/Units Sodium Level 142 136-145 mmol/L Potassium Level 3.2 L 3.5-5.1 mmol/L Chloride Level 107 98-107 mmol/L Carbon Dioxide Level 26 20-31 mmol/L Anion Gap 9 5-15 Blood Urea Nitrogen 9 # 9-23 mg/dL Creatinine 0.82 0.550-1.02 mg/dL Glomerular Filtration Rate Calc 85 >90 mL/min BUN/Creatinine Ratio 11.0 10.0-20.0 Serum Glucose 161 H 74-106 mg/dL Calcium Level 8.9 8.7-10.4 mg/dL Magnesium Level 1.7 1.6-2.6 mg/dL Vancomycin Level Trough < 3.0 L 5-10 ug/mL White Blood Count 10.9 H 4.4-10.8 10^3/uL Red Blood Count 4.37 4.0-5.20 10^6/uL Hemoglobin 11.9 L 12.2-16.2 g/dL Hematocrit 37.2 # 36.0-46.0 % Mean Corpuscular Volume 85.1 80.0-100.0 fL Mean Corpuscular Hemoglobin 27.2 L 28.0-32.0 pg Mean Corpuscular Hemoglobin Concent 31.9 L 32.0-36.0 g/dL Red Cell Distribution Width 18.2 H 11.8-14.3 % Platelet Count 253 140-450 10^3/uL Mean Platelet Volume 7.7 6.9-10.8 fL Neutrophils (%) (Auto) 84.5 H 37.0-80.0 % Lymphocytes (%) (Auto) 9.0 L 10.0-50.0 % Monocytes (%) (Auto) 5.2 0.0-12.0 % Eosinophils (%) (Auto) 1.1 0.0-7.0 % Basophils (%) (Auto) 0.2 0.0-2.0 % Neutrophils # (Auto) 9.2 H 1.6-8.6 10 ^3/uL Lymphocytes # (Auto) 1.0 0.4-5.4 10 ^3/uL Monocytes # (Auto) 0.6 0-1.3 10 ^3/uL Eosinophils # (Auto) 0.1 0-0.8 10 ^3/uL Basophils # (Auto) 0 0-0.2 10 ^3/uL Nucleated Red Blood Cells 0.1 % Lactic Acid Level 1.6 0.4-2.0 mmol/L Total Bilirubin 0.5 0.2-1.0 mg/dL Aspartate Amino Transferase (AST) 19 13-40 U/L Alanine Aminotransferase (ALT) 15 7-40 U/L Alkaline Phosphatase 129 H 46-116 U/L Total Protein 7.8 5.7-8.2 g/dL Albumin 4.4 3.2-4.8 g/dL Prothrombin Time 10.3 9.3-11.8 sec Prothrombin Time INR 0.97 0.9-1.15 Activated Partial Thromboplast Time 30.7 24.5-34.5 SEC D-Dimer, Quantitative 1.13 H 0.0-0.49 mg/L FEU Lactate Dehydrogenase 238 120-246 U/L B-Type Natriuretic Peptide 12.87 0-100 pg/mL Microbiology Date/Time Source Procedure Growth Status 06/29/24 08:00 Blood Blood Culture - Preliminary NO GROWTH AFTER 72 HOURS OF INCUBATION. Resulted Assessment A 53-year-old female patient who presents with left lower extremity pain and swelling and redness found to have 1. Sepsis secondary to left lower extremity cellulitis 2. Left lower extremity cellulitis rule out abscess 3. Left lower extremity swelling rule out DVT 4. Lactic acidosis 5. Acute kidney injury suspected secondary to vasomotor nephropathy 6. Hypokalemia 7. Hypertension PAUL SALVADOR MD Jul 02, 2024 20:39
== END 2024-07-02 20:38 | disposition home or self-care (01) | DRG 720 ==
LOC: ER 07:14 → TELE 18:21 → TELE-CENTR 18:24 → TELE 18:24 → TELE-CENTR 21:52
PROVIDERS: ADMIT Internal Medicine; ATTEND Internal Medicine
DX: A41.9 Sepsis, unspecified organism (principal); N17.0 Acute kidney failure with tubular necrosis; E87.20 Acidosis, unspecified; I80.3 Phlebitis and thrombophlebitis of lower extremities, unspecified; S82.142A Displaced bicondylar fracture of left tibia, initial encounter for closed fracture; L03.116 Cellulitis of left lower limb; E87.6 Hypokalemia; I10 Essential (primary) hypertension; G40.909 Epilepsy, unspecified, not intractable, without status epilepticus; Z88.5 Allergy status to narcotic agent; Z79.899 Other long term (current) drug therapy; X58.XXXA Exposure to other specified factors, initial encounter; Y93.89 Activity, other specified; Y92.89 Other specified places as the place of occurrence of the external cause; Y99.8 Other external cause status
CPT/HCPCS: 36415; 71045; 73700; 80048; 80053; 80202; 82565; 83605; 83615; 83735; 83880; 85025; 85379; 85610; 85730; 87040; 93971; 96365; 96367; G0378; J2543; J3480; J7060